=== PATIENT | male | born 1965 | race Caucasian/White ===

== ENCOUNTER 2018-09-13 18:00 | Emergency (ER) | payer SELFPAY ==
[2018-09-13 18:11] VITALS: BP 138/66; PULSE 86; RESP 18; TEMP 36.6; O2SAT 99; BMI 25.1
--- NOTE | 2018-09-13 18:11 | ED.URI ---
HPI - URI/Sore Throat <Elizabeth Barrera PA-C - Last Filed: 09/13/18 21:43> General Chief Complaint: Ear Stated Complaint: fever cough pain left ear,eye and head Time Seen by Provider: 09/13/18 18:10 Source: patient Mode of arrival: ambulatory Limitations: no limitations History of Present Illness HPI Narrative: This healthy 52-year-old male comes to ED due to left earache in vision changes. He states that on Saturday, he developed a sore throat with hoarseness and thought he was just getting a cold. He has not had any nasal congestion or drainage. He states he has minimal cough which is due to a tickle in his throat. Saturday he started to have chills and sweats ( no temperatures taken at home). He states that over the last couple of days his throat has mostly been hurting on the left side and he had a swollen lymph node in his neck which seems a little better now after massaging it. He states that Advil helped the sore throat. He states that since yesterday, however the pain seems to be shooting or radiating into his ear canal. He also has pain around the left orbital area that he describes as mild headache. He states that he has had a little bit of blurred vision in his left eye all week which she thinks could be new. He denies any weakness, difficulty with speech, or pain with chewing. He states his throat can be sore with swallowing but no difficulty swallowing in and of itself. He states that he bit his tongue accidentally when coughing this morning and used some Orajel for that. He states that accidentally got into his throat and now the throat feels better. He denies any chest pain, dyspnea, swelling in the extremities, joint pain or any other new complaints on systems review. He does travel between [place] and the [facility] for work. He has had some sick coworkers but no specific exposures known. Related Data Previous Rx's Medication Instructions Recorded lidocaine HCl [Lidocaine Viscous] 10 ml PO Q3H PRN #150 ml 09/13/18 Allergies Allergy/AdvReac Type Severity Reaction Status Date / Time Penicillins Allergy Unknown Verified 09/13/18 18:16 Review of Systems <Elizabeth Barrera PA-C - Last Filed: 09/13/18 21:43> Review of Systems ROS Unobtainable: All systems reviewed & are unremarkable except as noted in HPI and below PFSH <Elizabeth Barrera PA-C - Last Filed: 09/13/18 21:43> Medical History No pertinent family history (Chronic) History of concussion (Resolved) History of gluten intolerance (Resolved) Surgical History No pertinent past surgical history (Chronic) Social History Smoking Status: Never smoker Social History Smoking Status: Never smoker Comment: rare EtOH Exam <Elizabeth Barrera PA-C - Last Filed: 09/13/18 21:43> Narrative Exam Narrative: GENERAL APPEARANCE: Patient sitting comfortably, in no distress. HEAD: No sinus TTP. temporal artery pulsations intact and equal bilaterally EYES: PERRL, EOMI. visual acuity: OS 20/25, OD 20/30, OU 20/20 EARS: Normal auditory canals, TMS intact with normal light reflexes. ORAL CAVITY: Normal oropharynx. THROAT: erythematous, uvula midline, large tonsils, no exudate NECK/THYROID: Neck supple, full range of motion, 1 moderately enlarged left submandibular node which is a bit tender, shotty anterior cervical lymphadenopathy. LUNGS: Clear to auscultation bilaterally, rare cough on exam. HEART: RRR without murmur, nl S1, S2, no S3 or S4. EXTREMITIES: No cyanosis or edema DERM: No exanthem Initial Vital Signs Initial Vital Signs: Vital Signs Temperature 97.9 F 09/13/18 18:11 Pulse Rate 86 09/13/18 18:11 Respiratory Rate 18 09/13/18 18:11 Blood Pressure 138/66 09/13/18 18:11 Pulse Oximetry 99 09/13/18 18:11 <Harpreet Dan DO - Last Filed: 09/14/18 03:17> Initial Vital Signs Initial Vital Signs: Vital Signs Temperature 97.9 F 09/13/18 18:11 Pulse Rate 86 09/13/18 18:11 Respiratory Rate 18 09/13/18 18:11 Blood Pressure 138/66 09/13/18 18:11 Pulse Oximetry 99 09/13/18 18:11 Course <Elizabeth Barrera PA-C - Last Filed: 09/13/18 21:43> Additional Information: patient does travel for work but no specific exposures known. We discussed elevated LFTs, not clear whether new or chronic. He does not have any risk factors for hepatitis exposure. CRP somewhat elevated however sed rate is normal. He stated on vision screening exam he did not note any difficulty reading the chart. no clinical appearance of temporal arteritis. He does have pharyngitis /tonsillitis, rapid strep test is negative and he does not have exudate. We discussed source is most likely viral and he will continue ibuprofen and viscous lidocaine. We did discuss doing further testing, i.e. chest x-ray if he wished, however he states that his cough is really very minimal due to scratchy throat. He prefers to manage conservatively with supportive care, but agreed to return if any acutely worsening symptoms. Also advised establishing with a PCP once he returns home and rechecking lab work. He is agreeable Orders Ordered: ED Orders 09/13/18 18:50 C-Reactive Protein Quant Stat Complete Blood Count AUTO DIFF Stat Comprehensive Metabolic Panel Stat Erythrocyte Sedimentation Rate Stat Influenza A and B by PCR Rapid Stat Monotest Stat Discontinued Medications Lidocaine HCl (Viscous Lidocaine 2%) 15 ml PO NOW ONE Stop: 09/13/18 20:12 Last Admin: 09/13/18 20:42 Dose: 15 ml Vital Signs - 8 hr 09/13/18 21:07 Pulse Rate 83 Respiratory Rate 18 Blood Pressure 135/90 Pulse Oximetry 99 <Harpreet Dan DO - Last Filed: 09/14/18 03:17> Orders Ordered: ED Orders 09/13/18 18:50 C-Reactive Protein Quant Stat Complete Blood Count AUTO DIFF Stat Comprehensive Metabolic Panel Stat Erythrocyte Sedimentation Rate Stat Influenza A and B by PCR Rapid Stat Monotest Stat Discontinued Medications Lidocaine HCl (Viscous Lidocaine 2%) 15 ml PO NOW ONE Stop: 09/13/18 20:12 Last Admin: 09/13/18 20:42 Dose: 15 ml Vital Signs - 8 hr 09/13/18 21:07 Pulse Rate 83 Respiratory Rate 18 Blood Pressure 135/90 Pulse Oximetry 99 MDM - URI/Sore Throat <Elizabeth Barrera PA-C - Last Filed: 09/13/18 21:43> Lab Data Attestation: I reviewed the patient's lab results. Result diagrams: 09/13/18 18:50 09/13/18 18:50 Lab Results 09/13/18 09/13/18 09/13/18 Range/Units 18:50 18:50 18:50 WBC 4.3 L (4.5-11.0) X10^3/uL RBC 4.37 L (4.5-5.9) X10^6/uL Hgb 13.0 L (13.5-17.5) g/dL Hct 38.2 L (41-53) % MCV 87.6 (80-100) fL MCH 29.8 (26-34) PG MCHC 34.1 (30-36) % RDW 13.3 (11.6-14.8) % Plt Count 228 (150-400) X10^3/uL Neut % (Auto) 57.3 (50-75) % Lymph % (Auto) 25.0 (25-40) % Blanco % (Auto) 14.8 H (3-14) % Eos % (Auto) 2.7 (2-4) % Baso % (Auto) 0.2 (0-2) % Neut # (Auto) 2500 (7342-1919) /uL Lymph # (Auto) 1100 (0304-9776) /uL Blanco # (Auto) 600 (0-900) /uL Eos # (Auto) 100 (0-450) /uL Baso # (Auto) 0 (0-100) /uL ESR 6 (0-15) MM/HR Sodium 138 (137-145) mmol/L Potassium 4.1 (3.4-5.1) mmol/L Chloride 100 (98-107) mmol/L Carbon Dioxide 28 (22-32) mmol/L BUN 15 (9-20) mg/dL Creatinine 0.90 (0.66-1.25) mg/dL Estimated GFR > 60.0 (>60) mL/min BUN/Creatinine Ratio 16.7 (6-22) Glucose 121 H (70-100) mg/dL Calcium 9.3 (8.4-10.2) mg/dL Total Bilirubin 0.6 (0.2-1.3) mg/dL AST 74 H (17-59) IU/L ALT 123 H (21-72) IU/L Alkaline Phosphatase 175 H (38-126) U/L C-Reactive Protein 4.6 H (<1.0) mg/dL Total Protein 7.9 (6.3-8.2) g/dL Albumin 4.4 (3.5-5.0) g/dL Globulin 3.5 (1.7-4.1) g/dL Albumin/Globulin Ratio 1.3 (1.0-2.8) Monoscreen (Negative) Influenza A & B (PCR) Negative (Negative) 09/13/18 Range/Units 18:50 WBC (4.5-11.0) X10^3/uL RBC (4.5-5.9) X10^6/uL Hgb (13.5-17.5) g/dL Hct (41-53) % MCV (80-100) fL MCH (26-34) PG MCHC (30-36) % RDW (11.6-14.8) % Plt Count (150-400) X10^3/uL Neut % (Auto) (50-75) % Lymph % (Auto) (25-40) % Blanco % (Auto) (3-14) % Eos % (Auto) (2-4) % Baso % (Auto) (0-2) % Neut # (Auto) (2030-1377) /uL Lymph # (Auto) (8500-2646) /uL Blanco # (Auto) (0-900) /uL Eos # (Auto) (0-450) /uL Baso # (Auto) (0-100) /uL ESR (0-15) MM/HR Sodium (137-145) mmol/L Potassium (3.4-5.1) mmol/L Chloride (98-107) mmol/L Carbon Dioxide (22-32) mmol/L BUN (9-20) mg/dL Creatinine (0.66-1.25) mg/dL Estimated GFR (>60) mL/min BUN/Creatinine Ratio (6-22) Glucose (70-100) mg/dL Calcium (8.4-10.2) mg/dL Total Bilirubin (0.2-1.3) mg/dL AST (17-59) IU/L ALT (21-72) IU/L Alkaline Phosphatase (38-126) U/L C-Reactive Protein (<1.0) mg/dL Total Protein (6.3-8.2) g/dL Albumin (3.5-5.0) g/dL Globulin (1.7-4.1) g/dL Albumin/Globulin Ratio (1.0-2.8) Monoscreen Negative (Negative) Influenza A & B (PCR) (Negative) Point of Care Testing Rapid Strep A Negative <Harpreet Dan, DO - Last Filed: 09/14/18 03:17> Lab Data Lab Results 09/13/18 09/13/18 09/13/18 Range/Units 18:50 18:50 18:50 WBC 4.3 L (4.5-11.0) X10^3/uL RBC 4.37 L (4.5-5.9) X10^6/uL Hgb 13.0 L (13.5-17.5) g/dL Hct 38.2 L (41-53) % MCV 87.6 (80-100) fL MCH 29.8 (26-34) PG MCHC 34.1 (30-36) % RDW 13.3 (11.6-14.8) % Plt Count 228 (150-400) X10^3/uL Neut % (Auto) 57.3 (50-75) % Lymph % (Auto) 25.0 (25-40) % Blanco % (Auto) 14.8 H (3-14) % Eos % (Auto) 2.7 (2-4) % Baso % (Auto) 0.2 (0-2) % Neut # (Auto) 2500 (3177-1997) /uL Lymph # (Auto) 1100 (2350-7767) /uL Blanco # (Auto) 600 (0-900) /uL Eos # (Auto) 100 (0-450) /uL Baso # (Auto) 0 (0-100) /uL ESR 6 (0-15) MM/HR Sodium 138 (137-145) mmol/L Potassium 4.1 (3.4-5.1) mmol/L Chloride 100 (98-107) mmol/L Carbon Dioxide 28 (22-32) mmol/L BUN 15 (9-20) mg/dL Creatinine 0.90 (0.66-1.25) mg/dL Estimated GFR > 60.0 (>60) mL/min BUN/Creatinine Ratio 16.7 (6-22) Glucose 121 H (70-100) mg/dL Calcium 9.3 (8.4-10.2) mg/dL Total Bilirubin 0.6 (0.2-1.3) mg/dL AST 74 H (17-59) IU/L ALT 123 H (21-72) IU/L Alkaline Phosphatase 175 H (38-126) U/L C-Reactive Protein 4.6 H (<1.0) mg/dL Total Protein 7.9 (6.3-8.2) g/dL Albumin 4.4 (3.5-5.0) g/dL Globulin 3.5 (1.7-4.1) g/dL Albumin/Globulin Ratio 1.3 (1.0-2.8) Monoscreen (Negative) Influenza A & B (PCR) Negative (Negative) 09/13/18 Range/Units 18:50 WBC (4.5-11.0) X10^3/uL RBC (4.5-5.9) X10^6/uL Hgb (13.5-17.5) g/dL Hct (41-53) % MCV (80-100) fL MCH (26-34) PG MCHC (30-36) % RDW (11.6-14.8) % Plt Count (150-400) X10^3/uL Neut % (Auto) (50-75) % Lymph % (Auto) (25-40) % Blanco % (Auto) (3-14) % Eos % (Auto) (2-4) % Baso % (Auto) (0-2) % Neut # (Auto) (7606-3285) /uL Lymph # (Auto) (9685-6342) /uL Blanco # (Auto) (0-900) /uL Eos # (Auto) (0-450) /uL Baso # (Auto) (0-100) /uL ESR (0-15) MM/HR Sodium (137-145) mmol/L Potassium (3.4-5.1) mmol/L Chloride (98-107) mmol/L Carbon Dioxide (22-32) mmol/L BUN (9-20) mg/dL Creatinine (0.66-1.25) mg/dL Estimated GFR (>60) mL/min BUN/Creatinine Ratio (6-22) Glucose (70-100) mg/dL Calcium (8.4-10.2) mg/dL Total Bilirubin (0.2-1.3) mg/dL AST (17-59) IU/L ALT (21-72) IU/L Alkaline Phosphatase (38-126) U/L C-Reactive Protein (<1.0) mg/dL Total Protein (6.3-8.2) g/dL Albumin (3.5-5.0) g/dL Globulin (1.7-4.1) g/dL Albumin/Globulin Ratio (1.0-2.8) Monoscreen Negative (Negative) Influenza A & B (PCR) (Negative) Point of Care Testing Rapid Strep A Negative Discharge Plan Departure Patient Disposition: Home Clinical Impression: Acute viral syndrome Acute pharyngitis Qualifiers: Pharyngitis/tonsillitis etiology: unspecified etiology Qualified Code(s): J02.9 - Acute pharyngitis, unspecified Discharge Date/Time: 09/13/18 21:08 Interventions: ED Discharge Assessment Last Done: 09/13/18 21:07 Instructions: DI for Pharyngitis/Tonsillopharyngitis -- Adult, DI for Viral Syndrome Activity Restrictions/Additional Instructions: The cause of your sore throat and other symptoms is most likely a virus. these symptoms typically last 7-14 days and resolve on their own. Your test for strep throat and mononucleosis or negative. please take 800 mg (for [id number] tablets) of ibuprofen every 8 hr to help with fever, pain, and inflammation. You can also use the lidocaine throat numbing medicine as needed as well as [id number] lozenges or sprays. You should return as we talked about if you have any acutely worsening symptoms, i.e. high fever not responding to [id number] medicines, or new symptoms such as respiratory difficulties. As we discussed, you should set up a visit with a new primary care provider when you return home to [place], as it would be helpful to repeat lab work in a few weeks ( the liver function abnormalities, for example may be chronic for you). One of your inflammatory markers was also elevated today however this can be elevated with any acute illness. The 2nd marker that we checked was normal. Since you have not had any reason to have lab work, it is not clear what is an old vs new finding for you. please call medical records here at the hospital after you get your new patient appointment set up and they can send records including lab work for you so that your new provider will have them for comparison Prescriptions: New lidocaine HCl [Lidocaine Viscous] 2 % solution 10 ml PO Q3H PRN (Reason: mouth pain) Qty: 150 RF: 0 <Harpreet Dan, - Last Filed: 09/14/18 03:17> [facility] Attending Ludin Attestation: I was immediately available in the department for consultation. Documentation has been reviewed. I agree with assessment and plan.
--- NOTE | 2018-09-13 18:54 | ED_ITS ---
HPI - URI/Sore Throat <Elizabeth Barrera PA-C - Last Filed: 09/13/18 21:43> General Chief Complaint: Ear Stated Complaint: fever cough pain left ear,eye and head Time Seen by Provider: 09/13/18 18:10 Source: patient Mode of arrival: ambulatory Limitations: no limitations History of Present Illness HPI Narrative: This healthy 52-year-old male comes to ED due to left earache in vision changes. He states that on Saturday, he developed a sore throat with hoarseness and thought he was just getting a cold. He has not had any nasal congestion or drainage. He states he has minimal cough which is due to a tickle in his throat. Saturday he started to have chills and sweats ( no temperatures taken at home). He states that over the last couple of days his throat has mostly been hurting on the left side and he had a swollen lymph node in his neck which seems a little better now after massaging it. He states that Advil helped the sore throat. He states that since yesterday, however the pain seems to be shooting or radiating into his ear canal. He also has pain around the left orbi collette area that he describes as mild headache. He states that he has had a little bit of blurred vision in his left eye all week which she thinks could be new. He denies any weakness, difficulty with speech, or pain with chewing. He states his throat can be sore with swallowing but no difficulty swallowing in and of itself. He states that he bit his tongue accidentally when coughing this morning and used some Orajel for that. He states that accidentally got into his throat and now the throat feels better. He denies any chest pain, dyspnea, swelling in the extremities, joint pain or any other new complaints on systems review. He does travel between [place] and the [facility] for work. He has had some sick coworkers but no specific exposures known. Related Data Previous Rx's Medication Instructions Recorded lidocaine HCl [Lidocaine Viscous] 10 ml PO Q3H PRN #150 ml 09/13/18 Allergies Allergy/AdvReac Type Severity Reaction Status Date / Time Penicillins Allergy Unknown Verified 09/13/18 18:16 Review of Systems <Elizabeth Barrera PA-C - Last Filed: 09/13/18 21:43> Review of Systems ROS Unobtainable: All systems reviewed & are unremarkable except as noted in HPI and below PFSH <Elizabeth Barrera PA-C - Last Filed: 09/13/18 21:43> Medical History No pertinent family history (Chronic) History of concussion (Resolved) History of gluten intolerance (Resolved) Surgical History No pertinent past surgical history (Chronic) Social History Smoking Status: Never smoker Social History Smoking Status: Never smoker Comment: rare EtOH Exam <Elizabeth Barrera PA-C - Last Filed: 09/13/18 21:43> Narrative Exam Narrative: GENERAL APPEARANCE: Patient sitting comfortably, in no distress. HEAD: No sinus TTP. temporal artery pulsations intact and equal bilaterally EYES: PERRL, EOMI. visual acuity: OS 20/25, OD 20/30, OU 20/20 EARS: Normal auditory canals, TMS intact with normal light reflexes. ORAL CAVITY: Normal oropharynx. THROAT: erythematous, uvula midline, large tonsils, no exudate NECK/THYROID: Neck supple, full range of motion, 1 moderately enlarged left submandibular node which is a bit tender, shotty anterior cervical lymphadenopathy. LUNGS: Clear to auscultation bilaterally, rare cough on exam. HEART: RRR without murmur, nl S1, S2, no S3 or S4. EXTREMITIES: No cyanosis or edema DERM: No exanthem Initial Vital Signs Initial Vital Signs: Vital Signs Temperature 97.9 F 09/13/18 18:11 Pulse Rate 86 09/13/18 18:11 Respiratory Rate 18 09/13/18 18:11 Blood Pressure 138/66 09/13/18 18:11 Pulse Oximetry 99 09/13/18 18:11 <Harpreet Dan DO - Last Filed: 09/14/18 03:17> Initial Vital Signs Initial Vital Signs: Vital Signs Temperature 97.9 F 09/13/18 18:11 Pulse Rate 86 09/13/18 18:11 Respiratory Rate 18 09/13/18 18:11 Blood Pressure 138/66 09/13/18 18:11 Pulse Oximetry 99 09/13/18 18:11 Course <ELIDA Vogel Last Filed: 09/13/18 21:43> Additional Information: patient does travel for work but no specific exposures known. We discussed elevated LFTs, not clear whether new or chronic. He does not have any risk factors for hepatitis exposure. CRP somewhat elevated however sed rate is normal. He stated on vision screening exam he did not note any difficulty reading the chart. no clinical appearance of temporal arteritis. He does have pharyngitis /tonsillitis, rapid strep test is negative and he does not have exudate. We discussed source is most likely viral and he will continue ibuprofen and viscous lidocaine. We did discuss doing further testing, i.e. chest x-ray if he wished, however he states that his cough is really very minimal due to scratchy throat. He prefers to manage conservatively with supportive care, but agreed to return if any acutely worsening symptoms. Also advised establishing with a PCP once he returns home and rechecking lab work. He is agreeable Orders Ordered: ED Orders 09/13/18 18:50 C-Reactive Protein Quant Stat Complete Blood Count AUTO DIFF Stat Comprehensive Metabolic Panel Stat Erythrocyte Sedimentation Rate Stat Influenza A and B by PCR Rapid Stat Monotest Stat Discontinued Medications Lidocaine HCl (Viscous Lidocaine 2%) 15 ml PO NOW ONE Stop: 09/13/18 20:12 Last Admin: 09/13/18 20:42 Dose: 15 ml Vital Signs - 8 hr 09/13/18 21:07 Pulse Rate 83 Respiratory Rate 18 Blood Pressure 135/90 Pulse Oximetry 99 <Harpreet Dan DO - Last Filed: 09/14/18 03:17> Orders Ordered: ED Orders 09/13/18 18:50 C-Reactive Protein Quant Stat Complete Blood Count AUTO DIFF Stat Comprehensive Metabolic Panel Stat Erythrocyte Sedimentation Rate Stat Influenza A and B by PCR Rapid Stat Monotest Stat Discontinued Medications Lidocaine HCl (Viscous Lidocaine 2%) 15 ml PO NOW ONE Stop: 09/13/18 20:12 Last Admin: 09/13/18 20:42 Dose: 15 ml Vital Signs - 8 hr 09/13/18 21:07 Pulse Rate 83 Respiratory Rate 18 Blood Pressure 135/90 Pulse Oximetry 99 MDM - URI/Sore Throat <Elizabeth Barrera PA-C - Last Filed: 09/13/18 21:43> Lab Data Attestation: I reviewed the patient's lab results. Result diagrams: 09/13/18 18:50 09/13/18 18:50 Lab Results 09/13/18 09/13/18 09/13/18 Range/Units 18:50 18:50 18:50 WBC 4.3 L (4.5-11.0) X10^3/uL RBC 4.37 L (4.5-5.9) X10^6/uL Hgb 13.0 L (13.5-17.5) g/dL Hct 38.2 L (41-53) % MCV 87.6 (80-100) fL MCH 29.8 (26-34) PG MCHC 34.1 (30-36) % RDW 13.3 (11.6-14.8) % Plt Count 228 (150-400) X10^3/uL Neut % (Auto) 57.3 (50-75) % Lymph % (Auto) 25.0 (25-40) % [place] % (Auto) 14.8 H (3-14) % Eos % (Auto) 2.7 (2-4) % Baso % (Auto) 0.2 (0-2) % Neut # (Auto) 2500 (5770-6565) /uL Lymph # (Auto) 1100 (2795-8575) /uL [place] # (Auto) 600 (0-900) /uL Eos # (Auto) 100 (0-450) /uL Baso # (Auto) 0 (0-100) /uL ESR 6 (0-15) MM/HR Sodium 138 (137-145) mmol/L Potassium 4.1 (3.4-5.1) mmol/L Chloride 100 (98-107) mmol/L Carbon Dioxide 28 (22-32) mmol/L BUN 15 (9-20) mg/dL Creatinine 0.90 (0.66-1.25) mg/dL Estimated GFR > 60.0 (>60) mL/min BUN/Creatinine Ratio 16.7 (6-22) Glucose 121 H (70-100) mg/dL Calcium 9.3 (8.4-10.2) mg/dL Total Bilirubin 0.6 (0.2-1.3) mg/dL AST 74 H (17-59) IU/L ALT 123 H (21-72) IU/L Alkaline Phosphatase 175 H (38-126) U/L C-Reactive Protein 4.6 H (<1.0) mg/dL Total Protein 7.9 (6.3-8.2) g/dL Albumin 4.4 (3.5-5.0) g/dL Globulin 3.5 (1.7-4.1) g/dL Albumin/Globulin Ratio 1.3 (1.0-2.8) Monoscreen (Negative) Influenza A & B (PCR) Negative (Negative) 09/13/18 Range/Units 18:50 WBC (4.5-11.0) X10^3/uL RBC (4.5-5.9) X10^6/uL Hgb (13.5-17.5) g/dL Hct (41-53) % MCV (80-100) fL MCH (26-34) PG MCHC (30-36) % RDW (11.6-14.8) % Plt Count (150-400) X10^3/uL Neut % (Auto) (50-75) % Lymph % (Auto) (25-40) % [place] % (Auto) (3-14) % Eos % (Auto) (2-4) % Baso % (Auto) (0-2) % Neut # (Auto) (7585-4819) /uL Lymph # (Auto) (5706-7591) /uL [place] # (Auto) (0-900) /uL Eos # (Auto) (0-450) /uL Baso # (Auto) (0-100) /uL ESR (0-15) MM/HR Sodium (137-145) mmol/L Potassium (3.4-5.1) mmol/L Chloride (98-107) mmol/L Carbon Dioxide (22-32) mmol/L BUN (9-20) mg/dL Creatinine (0.66-1.25) mg/dL Estimated GFR (>60) mL/min BUN/Creatinine Ratio (6-22) Glucose (70-100) mg/dL Calcium (8.4-10.2) mg/dL Total Bilirubin (0.2-1.3) mg/dL AST (17-59) IU/L ALT (21-72) IU/L Alkaline Phosphatase (38-126) U/L C-Reactive Protein (<1.0) mg/dL Total Protein (6.3-8.2) g/dL Albumin (3.5-5.0) g/dL Globulin (1.7-4.1) g/dL Albumin/Globulin Ratio (1.0-2.8) Monoscreen Negative (Negative) Influenza A & B (PCR) (Negative) Point of Care Testing Rapid Strep A Negative <Harpreet Dan, - Last Filed: 09/14/18 03:17> Lab Data Lab Results 09/13/18 09/13/18 09/13/18 Range/Units 18:50 18:50 18:50 WBC 4.3 L (4.5-11.0) X10^3/uL RBC 4.37 L (4.5-5.9) X10^6/uL Hgb 13.0 L (13.5-17.5) g/dL Hct 38.2 L (41-53) % MCV 87.6 (80-100) fL MCH 29.8 (26-34) PG MCHC 34.1 (30-36) % RDW 13.3 (11.6-14.8) % Plt Count 228 (150-400) X10^3/uL Neut % (Auto) 57.3 (50-75) % Lymph % (Auto) 25.0 (25-40) % [place] % (Auto) 14.8 H (3-14) % Eos % (Auto) 2.7 (2-4) % Baso % (Auto) 0.2 (0-2) % Neut # (Auto) 2500 (8924-9181) /uL Lymph # (Auto) 1100 (4099-3178) /uL [place] # (Auto) 600 (0-900) /uL Eos # (Auto) 100 (0-450) /uL Baso # (Auto) 0 (0-100) /uL ESR 6 (0-15) MM/HR Sodium 138 (137-145) mmol/L Potassium 4.1 (3.4-5.1) mmol/L Chloride 100 (98-107) mmol/L Carbon Dioxide 28 (22-32) mmol/L BUN 15 (9-20) mg/dL Creatinine 0.90 (0.66-1.25) mg/dL Estimated GFR > 60.0 (>60) mL/min BUN/Creatinine Ratio 16.7 (6-22) Glucose 121 H (70-100) mg/dL Calcium 9.3 (8.4-10.2) mg/dL Total Bilirubin 0.6 (0.2-1.3) mg/dL AST 74 H (17-59) IU/L ALT 123 H (21-72) IU/L Alkaline Phosphatase 175 H (38-126) U/L C-Reactive Protein 4.6 H (<1.0) mg/dL Total Protein 7.9 (6.3-8.2) g/dL Albumin 4.4 (3.5-5.0) g/dL Globulin 3.5 (1.7-4.1) g/dL Albumin/Globulin Ratio 1.3 (1.0-2.8) Monoscreen (Negative) Influenza A & B (PCR) Negative (Negative) 09/13/18 Range/Units 18:50 WBC (4.5-11.0) X10^3/uL RBC (4.5-5.9) X10^6/uL Hgb (13.5-17.5) g/dL Hct (41-53) % MCV (80-100) fL MCH (26-34) PG MCHC (30-36) % RDW (11.6-14.8) % Plt Count (150-400) X10^3/uL Neut % (Auto) (50-75) % Lymph % (Auto) (25-40) % [place] % (Auto) (3-14) % Eos % (Auto) (2-4) % Baso % (Auto) (0-2) % Neut # (Auto) (1116-5166) /uL Lymph # (Auto) (8492-7644) /uL [place] # (Auto) (0-900) /uL Eos # (Auto) (0-450) /uL Baso # (Auto) (0-100) /uL ESR (0-15) MM/HR Sodium (137-145) mmol/L Potassium (3.4-5.1) mmol/L Chloride (98-107) mmol/L Carbon Dioxide (22-32) mmol/L BUN (9-20) mg/dL Creatinine (0.66-1.25) mg/dL Estimated GFR (>60) mL/min BUN/Creatinine Ratio (6-22) Glucose (70-100) mg/dL Calcium (8.4-10.2) mg/dL Total Bilirubin (0.2-1.3) mg/dL AST (17-59) IU/L ALT (21-72) IU/L Alkaline Phosphatase (38-126) U/L C-Reactive Protein (<1.0) mg/dL Total Protein (6.3-8.2) g/dL Albumin (3.5-5.0) g/dL Globulin (1.7-4.1) g/dL Albumin/Globulin Ratio (1.0-2.8) Monoscreen Negative (Negative) Influenza A & B (PCR) (Negative) Point of Care Testing Rapid Strep A Negative Discharge Plan Departure Patient Disposition: Home Clinical Impression: Acute viral syndrome Acute pharyngitis Qualifiers: Pharyngitis/tonsillitis etiology: unspecified etiology Qualified Code(s): J02.9 - Acute pharyngitis, unspecified Discharge Date/Time: 09/13/18 21:08 Interventions: ED Discharge Assessment Last Done: 09/13/18 21:07 Instructions: DI for Pharyngitis/Tonsillopharyngitis -- Adult, DI for Viral Syndrome Activity Restrictions/Additional Instructions: The cause of your sore throat and other symptoms is most likely a virus. these symptoms typically last 7-14 days and resolve on their own. Your test for strep throat and mononucleosis or negative. please take 800 mg (for [id number] tablets) of ibuprofen every 8 hr to help with fever, pain, and inflammation. You can also use the lidocaine throat numbing medicine as needed as well as [id number] lozenges or sprays. You should return as we talked about if you have any acutely worsening symptoms, i.e. high fever not responding to [id number] medicines, or new symptoms such as respiratory difficulties. As we discussed, you should set up a visit with a new primary care provider when you return home to [place], as it would be helpful to repeat lab work in a few weeks ( the liver function abnormalities, for example may be chronic for you). One of your inflammatory markers was also elevated today however this can be elevated with any acute illness. The 2nd marker that we checked was normal. Since you have not had any reason to have lab work, it is not clear what is an old vs new finding for you. please call medical records here at the hospital after you get your new patient appointment set up and they can send records including lab work for you so that your new provider will have them for comparison Prescriptions: New lidocaine HCl [Lidocaine Viscous] 2 % solution 10 ml PO Q3H PRN (Reason: mouth pain) Qty: 150 RF: 0 <Harpreet Dan DO - Last Filed: 09/14/18 03:17> [facility] Attending Ludin Attestation: I was immediately available in the department for consultation. Documentation has been reviewed. I agree with assessment and plan.
[2018-09-13 18:59] LABS: Add Manual Diff / Slide Review NO; Basophils Absolute Auto 0 /uL (0-100); Basophils Percent Auto 0.2 % (0-2); Eosinophils Absolute Auto 100 /uL (0-450); Eosinophils Percent Auto 2.7 % (2-4); Hematocrit 38.2 % (41-53); Lymphocytes Absolute Auto 1100 /uL (1100-4500); Mean Corpuscular HGB Conc 34.1 % (30-36); Mean Corpuscular Hemoglobin 29.8 PG (26-34); Mean Corpuscular Volume 87.6 fL (80-100); Monocytes Absolute Auto 600 /uL (0-900); Monocytes Percent Auto 14.8 % (3-14); Neutrophils Absolute Auto 2500 /uL (1500-7000); Neutrophils Percent Auto 57.3 % (50-75); Platelet Count 228 X10^3/uL (150-400); Red Blood Cell Count 4.37 X10^6/uL (4.5-5.9); Red Cell Distribution Width 13.3 % (11.6-14.8); White Blood Cell Count 4.3 X10^3/uL (4.5-11.0)
[2018-09-13 19:10] LABS: Alanine Aminotransferase 123 IU/L (21-72); Albumin 4.4 g/dL (3.5-5.0); Albumin Globulin Ratio 1.3 (1.0-2.8); Alkaline Phosphatase 175 U/L (38-126); Aspartate Aminotransferase 74 IU/L (17-59); BUN Creatinine Ratio 16.7 (6-22); Bilirubin Total 0.6 mg/dL (0.2-1.3); Blood Urea Nitrogen 15 mg/dL (9-20); C-Reactive Protein Quant 4.6 mg/dL (<1.0); Calcium 9.3 mg/dL (8.4-10.2); Carbon Dioxide 28 mmol/L (22-32); Chloride 100 mmol/L (98-107); Estimated Glomerular Filt Rate > 60.0 mL/min (>60); Globulin 3.5 g/dL (1.7-4.1); Glucose 121 mg/dL (70-100); HEMOLYSIS < 15 (0-50); Potassium 4.1 mmol/L (3.4-5.1); Sodium 138 mmol/L (137-145); Total Protein 7.9 g/dL (6.3-8.2)
[2018-09-13 19:17] LABS: Erythrocyte Sedimentation Rate 6 MM/HR (0-15); Influenza A and B by PCR Rapid Negative (Negative)
[2018-09-13 19:42] LABS: Monotest Negative (Negative)
[2018-09-13] MEDS: LIDOCAINE VISCOUS 2% 15 ML SOLUTION PO (20:42)
[2018-09-13 21:07] VITALS: BP 135/90; PULSE 83; RESP 18; O2SAT 99
== END 2018-09-13 21:08 | disposition home or self-care (01) ==
PROVIDERS: Emergency Provider Internal Medicine
DX: B34.9 Viral infection, unspecified (principal); J02.9 Acute pharyngitis, unspecified
CPT/HCPCS: 36415; 80053; 85025; 85651; 86140; 86318; 87400; 87880; 99283